=== PATIENT | male | born 1980 | race African-American/Black ===

== ENCOUNTER → 2020-07-10 | Outpatient (CLI) | payer BC ==
[~2020-07-10] MED LIST: AUGMENTIN 875875 MG PO; MEDROLDOSEPACK PO; NAPROSYN500 MG PO; NOHOMEMEDICATIONS; NORCO 5-325 TA1 EACH PO; TAMSULOSIN HCL0.4 MG PO; ZOFRAN ODT4 MG PO
== END ==
LOC: LAB 10:00
PROVIDERS: ATTEND Anesthesiology
DX: Z01.812 Encounter for preprocedural laboratory examination (principal); Z20.822 Contact with and (suspected) exposure to COVID-19